=== PATIENT | female | born 1965 | race African-American/Black ===

== ENCOUNTER 2017-07-14 10:14 | Emergency (ER) | payer BC ==
[~2017-07-14] VITALS: Ht 160 cm; Wt 92.5 kg
[2017-07-14 11:00] VITALS: BP 162/97
[2017-07-14] MEDS ORDERED: LISINOPRIL (11:00)
[2017-07-14] MEDS ORDERED: ALBUTEROL INHALER (11:00)
[2017-07-14] MEDS ORDERED: PROVENTIL INHALER (11:00)
[2017-07-14] MEDS ORDERED: IBUPROFEN 800MG TABLET PO ONE (13:15)
== END 2017-07-14 16:03 | disposition home or self-care (01) ==
LOC: ER 12:15
DX: J10.1 Influenza due to other identified influenza virus with other respiratory manifestations (principal); I10 Essential (primary) hypertension; J45.901 Unspecified asthma with (acute) exacerbation
CPT/HCPCS: 71045; 87804; 93005; 99285

== ENCOUNTER 2018-02-04 16:39 | Emergency (ER) | payer BC ==
[~2018-02-04] VITALS: Ht 162.6 cm; Wt 87.0 kg
[~2018-02-04 16:39] MED LIST: ALBUTEROL INHALER; LISINOPRIL; PROVENTIL INHALER
[2018-02-04] MEDS ORDERED: ACETAMINOPHEN 325MG TABLET PO ONE (19:00)
[2018-02-04 19:52] LABS: CLARITY URINE TURBID (CLEAR); COLOR URINE YELLOW (YELLOW); KETONES URINE TRACE (NEGATIVE); LEUKOCYTE ESTERASE URINE 1+ (NEGATIVE); NITRITE URINE NEGATIVE (NEGATIVE); OCCULT BLOOD URINE 3+ (NEGATIVE); PH URINE 5.5 (4.5-8.0); PROTEIN URINE 1+ (NEGATIVE); SPECIFIC GRAVITY URINE 1.025 (1.005-1.030)
[2018-02-05 00:36] LABS: BASOPHILS % 0.6 % (0.0-2.0); EOSINOPHILS % 2.4 % (0.0-5.0); HEMATOCRIT. 37.4 % (36.0-48.0); HEMOGLOBIN. 12.5 g/dL (12.0-16.0); LYMPHOCYTES % 44.6 % (20.0-50.0); MEAN CORPUSCULAR HEMOGLOBIN 28.5 pg (28.0-32.0); MEAN CORPUSCULAR VOLUME 85.5 fL (81.0-99.0); MEAN PLATELET VOLUME 8.6 fl (7.4-10.4); MONOCYTES % 4.9 % (2.0-8.0); NEUTROPHILS % 47.5 % (40.0-76.0); PLATELET 336 x1000/uL (130-400); RED BLOOD CELL COUNT 4.37 mill/uL (4.2-5.4); RED CELL DISTRIBUTION WIDTH 14.9 % (11.6-14.6)
[2018-02-05 00:49] LABS: CHLORIDE 106 mEq/L (98-107)
[2018-02-05] MEDS ORDERED: KETOROLAC 60MG/2ML VIAL IM ONE (02:00)
[2018-02-05 02:32] VITALS: BP 194/113
== END 2018-02-05 02:50 | disposition home or self-care (01) ==
LOC: ER 16:49
DX: N20.0 Calculus of kidney (principal)
CPT/HCPCS: 36415; 74176; 80053; 81003; 81025; 83690; 85025; 96372; 99285; J1885